=== PATIENT | male | born 1990 | race Caucasian/White ===

== ENCOUNTER 2025-03-20 15:23 | Outpatient (CLI) | payer OTHER, SELFPAY ==
--- OUTSIDE RECORDS SUMMARY | 2025-03-20 15:31 | XMS_ITS | Clinical Summary ---
Author Organization [facility] Address [address] 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 This disclosure is being madepursuant to the Care Everywhere program and may not contain all information available regarding this patient. Last updated 17.[facility] Allergies No known active allergies Medications * Be aware that medications may not be up to date on this document. Alwaysverify current medications with the patient. No known medications Social History Tobacco Use Types Packs/Day Years Used Date Smoking Tobacco: Never Smokeless Tobacco: Never Tobacco Cessation:Counseling Given: Yes Sex and Gender Information Value Date Recorded Sex Assigned at Not on file Legal Sex Male 10:18 AM [employer] Gender Identity Not on file Sexual Orientation Not on file Last Filed Vital Signs Vital Sign Reading Time Taken Comments Blood Pressure 118/60 03/25/2018 3:48 PM [employer] Pulse 82 03/25/2018 3:48 PM [employer] Temperature 36.7 C (98.1 F) 03/25/2018 3:48 PM [employer] Respiratory Rate - - Oxygen Saturation 98% 03/25/2018 3:48 PM [employer] Inhaled Oxygen Concentration - - Weight 68 kg (150 lb) 03/25/2018 3:48 PM [employer] Height 172.7 cm (5' 8) 03/25/2018 3:48 PM [employer] Body Mass Index 22.81 03/25/2018 3:48 PM [employer] Plan of Treatment Health Maintenance Due Date Last Done Comments HIV SCREENING 01/19/2004 HEPATITIS C SCREENING 01/14/2007 DTAP/TDAP/TD VACCINES (1 - Tdap) 01/19/2008 HEPATITIS B VACCINE (1 of 3 - 19+ 3-dose series) 01/19/2008 HPV VACCINE (1 - 3-dose SCDM series) 01/19/2016 DEPRESSION SCREENING 03/26/2024 COVID-19 VACCINE ( - 2024- season) 2024 INFLUENZA VACCINE (#1) 2024 6, 01/12/2015, 01/08/2014, Additional history exists ZOSTER VACCINE (1 of 2) 2039 HIB VACCINE Aged Out No longer eligi ble based on patient's age to complete this topic MENINGOCOCCAL (Group B) VACCINE SHARED DECISION-MAKING Aged Out No longer eligible based on patient's age to complete this topic MENINGOCOCCAL GROUPS A/C/Y/W VACCINE Aged Out No longer eligible based on patient's age to complete this topic PNEUMOCOCCAL VACCINE Aged Out No long er eligible based on patient's age to complete this topic
[2025-03-20 15:53] LABS: Hematocrit 43.9 % (40.0-54.0); Hemoglobin 15.5 g/dL (14.0-18.0); Mean Corpuscular HGB Conc 35.3 g/dL (32-36); Mean Corpuscular Hemoglobin 31.8 pg (27.0-31.0); Mean Corpuscular Volume 90.1 fL (78.0-102.0); Platelet Count Result 292 K/mm3 (150-420); Red Blood Count 4.87 M/mm3 (4.70-6.10); White Blood Count 8.0 K/mm3 (4.8-10.8)
[2025-03-20 16:18] LABS: Add Urine Microscopic? YES; Appearance Urine Clear (Clear); Glucose Urine UA Negative (Negative); Leukocyte Esterase Ur Negative (Negative); Nitrate Urine Negative (Negative); Specific Grav Ur 1.015 (1.010-1.020)
[2025-03-20 16:45] LABS: Alanine Aminotransferase 41 U/L (6-50); Albumin Level 5.7 g/dL (3.5-5.1); Alkaline Phosphatase 86 U/L (38-126); Amylase 90 U/L (30-110); Anion Gap 16 mmol/L (4-12); Aspartate Amino Transferase 34 U/L (17-59); Bilirubin,Total 0.7 mg/dL (0.2-1.3); Blood Urea Nitrogen 14 mg/dL (9-20); CRP < 0.5 mg/dL (<1.0); Calcium 9.9 mg/dL (8.4-10.2); Carbon Dioxide 25 mmol/L (22-30); Chloride 103 mmol/L (98-107); Estimated Glomerular Filt Rate > 60; Glucose 84 mg/dL (65-110); Lipase 57 U/L (23-300); Osmolality Calculated 297 mOsm/kg (285-295); Potassium 4.1 mmol/L (3.4-5.0); Sodium 144 mmol/L (137-145); Total Protein 9.2 g/dL (6.3-8.2)
== END 2025-03-20 15:24 | disposition home or self-care (01) ==
PROVIDERS: PCP Internal Medicine; Visit Provider Internal Medicine
DX: R10.9 Unspecified abdominal pain (principal)
CPT/HCPCS: 36415; 80053; 81001; 82150; 83690; 85027; 86140; 87086

== ENCOUNTER 2025-03-24 11:50 | Outpatient (CLI) | payer OTHER, SELFPAY ==
--- NOTE | ~2025-03-24 | CT_ITS ---
CT abdomen pelvis w con Clinical History: fever,abdominal pain, diarrhea . Comparison: None Technique: Axial images lung bases to symphysis pubis 100 mL Omnipaque 350 Coronal, sagittal reformats CT images acquired with automatic exposure control for dose reduction DLP: 460 mGy-cm Findings: Lung bases: Clear. Visualized heart and pericardium: Unremarkable. Liver: Unremarkable. Gallbladder: Unremarkable. Spleen: Unremarkable. Pancreas: Unremarkable. Adrenal glands: Unremarkable. Kidneys: Right kidney- No hydronephrosis. No renal stones. Left kidney- No hydronephrosis. No renal stones. Distal esophagus/stomach: Mild distal esophageal wall thickening/esophagitis. Small bowel loops: Normal caliber and wall thickness. Colon: Normal caliber and wall thickness. Normal appendix, right upper quadrant. Nodes: No enlarged nodes. Peritoneum: No ascites. No free air. Subtle pericolonic stranding left lower quadrant. Urinary bladder: Unremarkable. Prostate: Unremarkable. Bones: No acute bony abnormality. Soft tissues: Unremarkable. Aorta: No aneurysm or dissection. IVC: Unremarkable. Main portal vein/SMV/splenic vein: Patent. IMPRESSION: 1. Subtle left lower quadrant epiploic appendagitis. (Self-limited inflammation of colonic appendage.) 2. Otherwise no acute inflammatory process. Reviewed, dictated and finalized at location R. HELP DESK ANALYST IMPRESSION: 1. Subtle left lower quadrant epiploic appendagitis. (Self-limited inflammatio n of colonic appendage.) 2. Otherwise no acute inflammatory process.
[2025-03-24 12:32] LABS: Hematocrit 42.9 % (40.0-54.0); Hemoglobin 14.8 g/dL (14.0-18.0); Mean Corpuscular HGB Conc 34.5 g/dL (32-36); Mean Corpuscular Hemoglobin 31.2 pg (27.0-31.0); Mean Corpuscular Volume 90.5 fL (78.0-102.0); Platelet Count Result 236 K/mm3 (150-420); Red Blood Count 4.74 M/mm3 (4.70-6.10); White Blood Count 3.5 K/mm3 (4.8-10.8)
[2025-03-24 12:34] LABS: Add Urine Microscopic? YES; Appearance Urine Clear (Clear); Glucose Urine UA Negative (Negative); Leukocyte Esterase Ur Negative (Negative); Nitrate Urine Negative (Negative); Specific Grav Ur 1.010 (1.010-1.020)
[2025-03-24 12:53] LABS: Alanine Aminotransferase 58 U/L (6-50); Albumin Level 5.3 g/dL (3.5-5.1); Alkaline Phosphatase 165 U/L (38-126); Amylase 97 U/L (30-110); Anion Gap 16 mmol/L (4-12); Aspartate Amino Transferase 40 U/L (17-59); Bilirubin,Total 0.8 mg/dL (0.2-1.3); Blood Urea Nitrogen 7 mg/dL (9-20); CRP 1.2 mg/dL (<1.0); Calcium 9.6 mg/dL (8.4-10.2); Carbon Dioxide 26 mmol/L (22-30); Chloride 102 mmol/L (98-107); Estimated Glomerular Filt Rate > 60; Glucose 97 mg/dL (65-110); Lipase 87 U/L (23-300); Osmolality Calculated 296 mOsm/kg (285-295); Potassium 3.9 mmol/L (3.4-5.0); Sodium 144 mmol/L (137-145); Total Protein 8.9 g/dL (6.3-8.2)
== END 2025-03-24 11:51 | disposition home or self-care (01) ==
PROVIDERS: PCP Internal Medicine; Visit Provider Nurse Practitioner Family
DX: R50.9 Fever, unspecified (principal); R10.9 Unspecified abdominal pain; R19.7 Diarrhea, unspecified; J06.9 Acute upper respiratory infection, unspecified; R93.5 Abnormal findings on diagnostic imaging of other abdominal regions, including retroperitoneum
CPT/HCPCS: 36415; 74177; 80053; 81001; 82150; 83605; 83690; 85027; 85652; 86140; 87040; 87086; Q9967